=== PATIENT | female | born 1955 | race Hispanic/Latino ===

== ENCOUNTER 2024-05-01 07:54 | Emergency (ER) | payer MEDICARE, OTHER ==
[~2024-05-01] VITALS: Ht 157.5 cm; Wt 67.1 kg
[~2024-05-01 07:54] MED LIST: CIPRO500 MG PO; PEPCID20 MG PO
[2024-05-01 08:12] VITALS: PULSE 72; RESP 17; TEMP 98.1
[2024-05-01] MEDS: MECLIZINE HCL 12.5 MG TAB PO ONE (09:07)
[2024-05-01] MEDS ORDERED: MECLIZINE HCL12.5 MG PO (09:48)
[2024-05-01 10:12] VITALS: BP 145/68; PULSE 78; RESP 18; O2SAT 100
== END 2024-05-01 10:13 | disposition home or self-care (01) ==
LOC: ER 07:59
DX: R42 Dizziness and giddiness (principal); I10 Essential (primary) hypertension; R73.03 Prediabetes
CPT/HCPCS: 99282; J8597

== ENCOUNTER → 2024-05-12 | Outpatient (REF) | payer MEDICARE ==
[~2024-05-12] MED LIST changes: +MECLIZINE HCL12.5 MG PO
== END ==
LOC: MRI 09:05
PROVIDERS: ATTEND Internal Medicine
DX: R42 Dizziness and giddiness (principal)
CPT/HCPCS: 70551

== ENCOUNTER → 2025-03-31 | Outpatient (REF) | payer MEDICARE | LOC: RAD 16:04 | PROVIDERS: ATTEND Internal Medicine | DX: M25.562 Pain in left knee (principal) ==